=== PATIENT | female | born 2000 | race African-American/Black ===

== ENCOUNTER 2023-09-06 15:05 | Outpatient (CLI) | payer OTHER, SELFPAY | END 2023-09-06 15:06 | disposition home or self-care (01) | LOC: AMB 09-12 02:38 | PROVIDERS: Visit Provider Family Medicine | DX: R10.9 Unspecified abdominal pain (principal) | CPT/HCPCS: A0425; A0427 ==

== ENCOUNTER 2023-09-06 15:25 | Emergency (ER) | payer OTHER, SELFPAY ==
[2023-09-06 15:27] VITALS: BP 96/64; PULSE 62; RESP 20; TEMP 36.2; O2SAT 100; BMI 15.4
--- NOTE | 2023-09-06 15:50 | ED.GENADULT ---
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 She is on the 1st day of her menstrual cycle. It started around noon. She has been having severe lower abdominal cramping and low back pain. She took Aleve but it is not helping. She is nauseous and vomited 3 times. She recalls that during her teenage years her periods were fairly mild and manageable. A couple of years ago, while she was sharing a bit of her sister she started experiencing much more significant pelvic cramping and nausea with her periods. After that she moved here to the [facility]. She saw that was a rate through her host family and was recommended to use Aleve for. Related pain it feels that her periods have been fairly manageable since then. Periods are often irregular. She has a period every month but sometimes it comes earlier in sometimes later than 28 days. She can not recall exactly when her last period was. She started having her period today at roughly around noon. However today she had much more severe bilateral lower pelvic cramping and low back pain. She was nauseous and had at least 3 episodes of dry heaving. She was trying to walk down the hallway in her dorm but was so worn out from vomiting that she was so weak she had to lay down on the floor. She did really faint. She was just worn out. Seeing her distress, her RA called [facility] safety at [employer] and she was brought here to the ER. Now that she is here she says her pain is much improved. She is confused because she is feeling so much better. She has never had this sort of severe pelvic cramping in the past. She has not had any recent fever. No cough or shortness of breath. No other nausea or vomiting aside from what happened this afternoon. Bowel movements have been normal. Urination normal. No dysuria, urgency, frequency, hematuria. No vaginal discharge. She is not sexually active. She says is no possibility being or having STI. Bowel movements normal. No black or bloody stools. No known injury. Related Data Home Medications ?Medication ?Instructions ?Recorded ?Confirmed No Known Home Medications 04/19/23 04/19/23 Allergies Allergy/AdvReac Type Severity Reaction Status Date / Time No Known Drug Allergies Allergy Verified 04/19/23 16:09 [facility] Social History Smoking Status: Never smoker Do you use any of these nicotine containing products: None Second hand tobacco smoke exposure: No How often do you have a drink containing alcohol: never How often do you have six or more drinks on one occasion: Never AUDIT-C Alcohol total score: 0 Non-prescribed substance use: denies use service: No Exam Narrative: Exam Narrative: Constitutional: Appears well-developed and well-nourished. Alert. Conversant. Non toxic. HENT: Head: Atraumatic. Nose: Nose normal. Mouth/Throat: Oral mucosa is clear and moist. no trismus. Eyes: Conjunctivae normal. EOM normal. Pupils equal, round, and reactive to light. No scleral icterus. Neck: Normal range of motion. Neck supple. No tracheal deviation present. Cardiovascular: Normal rate, regular rhythm. No gallop. No friction rub. No murmur heard. Symmetric radial artery pulses Pulmonary/Chest: Effort normal. No stridor. No respiratory distress. No wheezes. No rales. No rhonchi . No tenderness. Abdominal: Soft. Bowel sounds normal. No distension. No mass. No tenderness. No rebound. No guarding. No CVA tenderness. Musculoskeletal: RUE: Normal range of motion. No tenderness. No deformity LUE: Normal range of motion. No tenderness. No deformity RLE: Normal range of motion. No edema. No tenderness. No deformity LLE: Normal range of motion. No edema. No tenderness. No deformity Neurological: Alert and oriented to person, place, and time. Normal strength. CN II-VII intact. No sensory deficit. GCS eye subscore is 4. GCS verbal subscore is 5. GCS motor subscore is 6. Normal coordination Skin: Skin is warm and dry. No rash noted. No pallor. Normal capillary refill. Psychiatric: Normal mood. Normal affect. Very polite. Voice is initially very soft, almost whispery, but then becomes more expressive as we talk. Const: Vital Signs, click to edit/add: Vital Signs - 24 hr 09/06/23 15:27 Temperature 97.2 F L Pulse Rate [Pulse Oximeter] 62 Respiratory Rate 20 Blood Pressure [Ri ght Upper Arm] 96/64 Pulse Oximetry 100 Oxygen Delivery Me thod Room Air Course Vital Signs Vital signs: Initial Vital Signs Temperature 97.2 F L 09/06/23 15:27 Temperature Source Temporal Artery Scan 09/06/23 15:27 Pulse Rate 62 09/06/23 15:27 Pulse Rhythm Regular 09/06/23 15:27 Respiratory Rate 20 09/06/23 15:27 Blood Pressure 96/64 09/06/23 15:27 Blood Pressure Mean 74 09/06/23 15:27 Blood Pressure Position Right Lateral 09/06/23 15:27 Pulse Oximetry 100 09/06/23 15:27 Oxygen Delivery Method Room Air 09/06/23 15:27 Vital Signs Temperature 97.2 F L 09/06/23 15:27 Pulse Rate 62 09/06/23 15:27 Respiratory Rate 20 09/06/23 15:27 Blood Pressure 96/64 09/06/23 15:27 Pulse Oximetry 100 09/06/23 15:27 Oxygen Delivery Method Room Air 09/06/23 15:27 Temperature 97.2 F L 09/06/23 15:27 Pulse Rate 62 09/06/23 15:27 Respiratory Rate 20 09/06/23 15:27 Blood Pressure 96/64 09/06/23 15:27 Pulse Oximetry 100 09/06/23 15:27 Oxygen Delivery Method Room Air 09/06/23 15:27 Medications Administered Medications: Discontinued Medications Generic Name Dose Route Start Last Admin Trade Name Freq PRN Reason Stop Dose Admin Ketorolac Tromethamine 15 mg 09/06/23 15:54 09/06/23 16:53 Ketorolac 15 Mg/Ml Inj IVP 09/06/23 15:55 Not Given ONCE ONE Medical Decision Making MDM Narrative Medical decision making narrative: 23-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 She is currently on the 1st day of her menstrual cycle. Who she was apparently having significant pain, nausea, and distress prior to arrival but after arriving here she says her pain is resolved and she is feeling better. Differential for her symptoms is broad. Consider possible dysmenorrhea from menstrual cycle. Also other pathology considered including ovarian cyst, cyst rupture, ovarian torsion. Consider complications such as miscarriage or ectopic. Consider possible PID. Consider non gynecologic causes of pain including kidney stone, UTI, pyelonephritis. Less likely would be appendicitis, colitis, diverticulitis. Prior to seeing the patient, hearing the triage story I did order a workup including labs, urine, pelvic ultrasound. I then went to the patient's bedside and evaluated her. She said she was feeling better. She and I had a very long discussion. We discussed our differential at concern and the workup for it. She is feeling better now and is very reluctant to have any further workup. She is worried about medical bills that she can not afford. We discussed that with more important is her health. She and I discussed the potential risk of undiagnosed cyst or torsion as well as other pathology. She says she has never been sexually active. Therefore no risk for or PID. Nonetheless ovarian cyst or torsion, kidney stone, UTI, and other GI pathology remains on the differential. Ultimately she would prefer to discharge back to her college campus and monitor symptoms there. She does not want any further workup here in the ER. I do think she has medical decision-making capacity. She understands the risks of delayed diagnosis for these conditions. We discussed return precautions. She is comfortable with this plan of care. She has adequate supplies of Aleve and nausea medicine that she can use at home if needed. Recommended outpatient follow-up with her student health service. She is invited to return to the ER immediately if she changes her mind or has any other worsening symptoms. Discharge Plan Discharge Clinical Impression: Pelvic pain, Vomiting Patient Disposition: Home, Self-Care Condition: Stable Instructions: Pelvic Pain (ED) Additional Instructions: As we discussed, please come back to the ER right away if you have any recurrent symptoms such as pelvic pain, nausea vomiting, or if you have any other concerning symptoms such as fever, vaginal discharge, back pain, fainting, or any problems. Please recheck with the Student Health Service within the next 2-3 days. Prescriptions: No Action No Known Home Medications Follow Up/Referrals: Provider,Not a Local [Primary Care Provider] - Stand Alone Forms: [email or web address] Info Instructions
== END 2023-09-06 16:52 | disposition home or self-care (01) ==
LOC: ED 16:31
PROVIDERS: Emergency Provider Emergency Medicine
DX: R10.2 Pelvic and perineal pain (principal); R11.10 Vomiting, unspecified
CPT/HCPCS: 80048; 81001; 81025; 85025; 96374; 99282; 99284

== ENCOUNTER 2024-05-22 13:32 | Emergency (ER) | payer OTHER, SELFPAY ==
[2024-05-22] VITALS (25 sets, daily range): BP systolic 84–112; BP diastolic 55–74; PULSE 88–118; RESP 15–36; TEMP 37.4; O2SAT 98–100; BMI 16.3
--- NOTE | 2024-05-22 14:48 | ED_ITS ---
HPI - Skin/Abscess/Foreign Bdy General Chief complaint: Skin/Abscess/Foreign Body Stated complaint: Severe pain rectal area Time Seen by Provider: 05/22/24 13:54 History of Present Illness HPI narrative: This 24-year-old female comes in with a boil on her buttock almost near the perineum. This is been present for a few days and she did go to urgent care a couple days ago. She received a prescription for Bactrim and has been taking this medicine. There was no incision and drainage that was done at that time. She comes back feeling worse and has lots of guarding and discomfort in this area. Related Data Previous Rx's ?Medication ?Instructions ?Recorded sulfamethoxazole 800 1 tab PO BID 7 days #14 tabs 05/20/24 mg-trimethoprim 160 mg tablet (Bactrim DS) Allergies Allergy/AdvReac Type Severity Reaction Status Date / Time No Known Drug Allergies Allergy Verified 05/20/24 15:47 Review of Systems Status of ROS: Reports: 10 or more systems reviewed and unremarkable except as noted in History and below Narrative: Constitutional: No fevers, no weight gain or loss. Eyes: No discharge. No vision changes. HENT: No congestion, no sore throat, no ear pain. Cardiovascular: No chest pain, no palpitations. Respiratory: No shortness of breath, no wheezes, no cough. Gastrointestinal: No abdominal pain, no vomiting, no diarrhea. Genitourinary: No dysuria, no hematuria. Musculoskeletal: Normal range of motion. Skin: No rashes, no pruritis. Neurological: No dizziness, weakness, sensory change, speech change. Endo/Heme/Allergies: No bruising or bleeding. No polydipsia. Pysch: no suicidality, no anxiety, no insomnia. All other systems reviewed and are negative. [facility] Medical History origin History of tuberculosis ?Z86.11 - Personal history of tuberculosis (ICD-10) Social History Smoking Status: Never smoker Do you use any of these nicotine containing products: None Second hand tobacco smoke exposure: No How often do you have a drink containing alcohol: never How often do you have six or more drinks on one occasion: Never AUDIT-C Alcohol total score: 0 Non-prescribed substance use: denies use service: No Exam Narrative: Exam Narrative: Constitutional: Well-developed, well-nourished, no acute distress. HEENT: Normocephalic, atraumatic. Neck: Normal range of motion. Nontender. Supple. Heart: Regular. No murmurs. Normal rate. Intact distal pulses. Lungs: Clear to auscultation. No chest discomfort. No wheezes, rhonchi, or rales. Abdomen: Normal bowel sounds. Nontender. No rebound tenderness. Genitalia: Abscess just right of midline in her lower buttock and perineum a rossana. There is a small amount of drainage. Back: No midline tenderness. Normal range of motion. Extremities: Normal range of motion. No injury. Skin: Intact. No rash. Warm. No erythema or pallor. Neurologic: No altered sensation. No weakness. Alert and oriented. Psychiatric: No suicidality. No anxiety or depression. No insomnia. Nursing notes and vitals signs are reviewed. Const: Vital Signs, click to edit/add: Vital Signs - 24 hr 05/22/24 13:40 05/22/24 16:36 05/22/24 16:45 Temperature 99.3 F Pulse Rate 103 H 110 H Pulse Rate [Pulse Oximeter] 118 H Respiratory Rate 16 Blood Pressure Blood Pressure [Ri ght Upper Arm] 94/61 Pulse Oximetry 98 99 99 Oxygen Delivery Me thod Room Air 05/22/24 16:46 Temperature Pulse Rate 114 H Pulse Rate [Pulse Oximeter] Respiratory Rate Blood Pressure 102/65 Blood Pressure [Ri ght Upper Arm] Pulse Oximetry 100 Oxygen Delivery Me thod Course Vital Signs Vital signs: Initial Vital Signs Temperature 99.3 F 05/22/24 13:40 Temperature Source Temporal Artery Scan 05/22/24 13:40 Pulse Rate 118 H 05/22/24 13:40 Respiratory Rate 16 05/22/24 13:40 Blood Pressure 94/61 05/22/24 13:40 Blood Pressure Mean 72 05/22/24 13:40 Blood Pressure Position Sitting 05/22/24 13:40 Pulse Oximetry 98 05/22/24 13:40 Oxygen Delivery Method Room Air 05/22/24 13:40 Vital Signs Temperature 99.3 F 05/22/24 13:40 Pulse Rate 118 H 05/22/24 13:40 Respiratory Rate 16 05/22/24 13:40 Blood Pressure 94/61 05/22/24 13:40 Pulse Oximetry 98 05/22/24 13:40 Oxygen Delivery Method Room Air 05/22/24 13:40 Temperature 99.3 F 05/22/24 13:40 Pulse Rate 114 H 05/22/24 16:46 Respiratory Rate 16 05/22/24 13:40 Blood Pressure 102/65 05/22/24 16:46 Pulse Oximetry 100 05/22/24 16:46 Oxygen Delivery Method Room Air 05/22/24 13:40 Medications Administered Medications: Discontinued Medications Generic Name Dose Route Start Last Admin Trade Name Freq PRN Reason Stop Dose Admin Lidocaine/Epinephrine/Tetracaine 3 ml 05/22/24 14:47 05/22/24 14:53 Lidocaine/Epinep/Tetracaine 3 Ml Gel..Ml. TOPICAL 05/22/24 14:48 3 ml ONCE ONE Administration MDM - Skin/Abscess/Foreign Bdy MDM Narrative Medical decision making narrative: This patient comes in with an abscess in her perineum area. She is very guarded and sensitive to pain. I did attempt to anesthetize the area locally by using LET but despite this treatment she was not safe to remain still to let me incise and drain her abscess. I recommended sedation with propofol which she is agreeable to. Informed consent is acquired and anesthesia came to assist in the procedure. She did receive a total of 170 mg of propofol for adequate sedation. I did incise and drain about 3 mL of purulent fluid. I did then insert iodoform gauze followed by a gauze pad to absorb any drainage. The patient received instructions to remove this gauze tomorrow. She is already taking Bactrim. She is feeling much better after draining the fluid. Discharge Plan Discharge Clinical Impression: Cutaneous abscess Patient Disposition: Home w/ Parent or Adult Condition: Improved Additional Instructions: Continue with Bactrim as prescribed. Use [id number] medicines also as needed and directed. Remove the gauze packing tomorrow. Follow up with MD return if worsening. Prescriptions: No Action sulfamethoxazole-trimethoprim [Bactrim DS] 800-160 mg tablet 1 tab PO BID 7 Days Qty: 14 0RF Follow Up/Referrals: Provider,Not a Local [Primary Care Provider] - Stand Alone Forms: [facility] Info Instructions
[2024-05-22] MEDS: LIDOCAINE/EPINEP/TETRACAINE 3 ML GEL..ML. TOPICAL (14:53)
--- NOTE | 2024-05-22 17:19 | P.ANES_ITS ---
Anesthesia Charges Start Date/Time Anesthesia Start Date: 05/22/24 Anesthesia Start Time: 17:00 Stop Date/Time Anesthesia Stop Date: 05/22/24 Anesthesia Stop Time: 17:15 Summary Emergency: PETROLEUM SUPPLY SPECIALIST Coding CPT Codes CPT Codes: ANESTH SKIN EXT/PER/ATRUNK - 41188 ([id number]) QZ - PETROLEUM SUPPLY SPECIALIST SVC W/O HEAD OF HOUSEKEEPING BY MD, P1 - NORMAL HEALTHY PATIENT Additional Codes: Summary - Emergency: PETROLEUM SUPPLY SPECIALIST ([id number])
--- NOTE | 2024-05-22 17:19 | W.ANESCHARGE ---
Anesthesia Charges Start Date/Time Anesthesia Start Date: 05/22/24 Anesthesia Start Time: 17:00 Stop Date/Time Anesthesia Stop Date: 05/22/24 Anesthesia Stop Time: 17:15 Summary Emergency: TIMBER HARVESTER OPERATOR Coding CPT Codes CPT Codes: ANESTH SKIN EXT/PER/ATRUNK - 69742 ([id number]) QZ - TIMBER HARVESTER OPERATOR SVC W/O DRILLER AND REAMER BY MD, P1 - NORMAL HEALTHY PATIENT Additional Codes: Summary - Emergency: TIMBER HARVESTER OPERATOR ([id number])
== END 2024-05-22 18:32 | disposition home or self-care (01) ==
PROVIDERS: Emergency Provider Emergency Medicine Emergency Medical Services
DX: L02.31 Cutaneous abscess of buttock (principal)
CPT/HCPCS: 10060; 00400; 99140; 99283